=== PATIENT | male | born 1990 | race African-American/Black ===

== ENCOUNTER 2020-12-24 03:46 | Emergency (ER) | payer OTHER ==
[~2020-12-24] VITALS: Ht 177.8 cm; Wt 136.4 kg
--- NOTE | 2020-12-24 04:53 | EKG ---
[facility] [address] [place] [address] Test Date: 2020-12-24 Test Time: 04:46:42 Pat Name: NAVEED ARAGON Department: Room: Gender: M Sales Team Manager: TREY : 1990 Requested By: LYNNE MCELROY Order Number: [id number] Reading MD: Measurements Intervals Christopher Rate: 70 P: 47 MD: 168 QRS: 30 QRSD: 88 T: -19 QT: 364 QTc: 396 Interpretive Statements SINUS RHYTHM T ABNORMALITY IN INFERIOR LEADS ABNORMAL ECG RI6.01 No previous ECG available for comparison
[2020-12-24] MEDS: KETOROLAC 60 MG/2 ML VIAL. IM ONE (05:19)
[2020-12-24 05:26] VITALS: BP 168/105
[2020-12-24] MEDS ORDERED: TRAM-48 PO (06:01)
[2020-12-24] MEDS ORDERED: CYCL10TA2 PO (06:01)
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
== END 2020-12-24 06:10 | disposition home or self-care (01) ==
LOC: ER 03:46
DX: M25.561 Pain in right knee (principal); R07.89 Other chest pain; R94.31 Abnormal electrocardiogram [ECG] [EKG]; G89.11 Acute pain due to trauma; V49.69XA Unspecified car occupant injured in collision with other motor vehicles in traffic accident, initial encounter; Y93.89 Activity, other specified; Y92.488 Other paved roadways as the place of occurrence of the external cause; Y99.8 Other external cause status
CPT/HCPCS: 71045; 73562; 93005; 96372; 99284; J1885